=== PATIENT | female | born 1995 | race Caucasian/White ===

== ENCOUNTER 2017-10-17 18:54 | Emergency (ER) | payer OTHER ==
[2017-10-17 19:52] VITALS: BP 118/67
--- NOTE | 2017-10-17 20:03 | ED ---
Allergic Reaction/Systemic - HPI Summary HPI Summary: This patient is a 22 year old F presenting to [facility] accompanied by father with a chief complaint of possible allergic reaction that began at approximately 1830. The patient rates the pain 2/10 in severity. Symptoms aggravated by nothing. Symptoms alleviated by nothing. Patient reports slight dyspnea, mild epigastric pain, and dizziness. Pt reports that she ate noodles which may have had trace peanuts (which she is allergic to). - History of Current Complaint Chief Complaint: EDAllergicReaction Time Seen by Provider: 10/17/17 19:34 Hx Obtained From: Patient Onset/Duration: Sudden Onset, Started hours ago, Still Present Timing: Constant Severity Initially: Mild Severity Currently: Mild Pain Intensity: 2 Pain Scale Used: 0-10 Numeric Aggravating Factor(s): Nothing Alleviating Factor(s): Nothing Associated Signs And Symptoms: Positive: Other: - Patient reports slight dyspnea , mild epigastric pain, and dizziness - Allergies/Home Medications Allergies/Adverse Reactions: Allergies Allergy/AdvReac Type Severity Reaction Status Date / Time peanut Allergy Anaphylatic Verified 10/17/17 19:00 Shock PMH/Surg Hx/FS Hx/Imm Hx Previously Healthy: No Respiratory History: Reports: Hx Asthma Opthamlomology History: Denies: Hx Legally Blind EENT History: Denies: Hx Deafness Infectious Disease History: No Infectious Disease History: Denies: Traveled Outside the [place] in Last 30 Days - Family History Known Family History: Positive: Other - Heart murmur - father - Social History Occupation: Student Lives: Dormitory/Roommates Alcohol Use: Occasionally Hx Substance Use: Yes Substance Use Type: Reports: Marijuana Hx Tobacco Use: No Smoking Status (MU): Never Smoked Tobacco Review of Systems Positive: Other - Positive dyspnea Positive: Abdominal Pain Neurological: Other - Positive dizziness All Other Systems Reviewed And Are Negative: Yes Physical Exam - Summary Physical Exam Summary: Appearance: Well-appearing, Well-nourished, lying in bed comfortably Skin: Warm, dry, no obvious rash Eyes: sclera anicteric, no conjunctival pallor ENT: mucous membranes moist, pharynx appears normal Neck: Supple, nontender Respiratory: Clear to auscultation, no signs of respiratory distress Cardiovascular: Normal S1, S2. No murmurs. Normal distal pulses in tibial and radial bilaterally. Abdomen: Soft, nontender, normal active bowel sounds present Musculoskeletal: Normal, Strength/ROM Intact Neurological: A&Ox3, awake and alert, mentation is normal, speech is fluent and appropriate Psychiatric: affect is normal, does not appear anxious or depressed Triage Information Reviewed: Yes Vital Signs On Initial Exam: Initial Vitals Temp Pulse Resp BP Pulse Ox 98.3 F 80 18 131/76 98 10/17/17 18:56 10/17/17 18:56 10/17/17 18:56 10/17/17 18:56 10/17/17 18:56 Vital Signs Reviewed: Yes Diagnostics - Vital Signs Vital Signs Temp Pulse Resp BP Pulse Ox 10/17/17 19:42 61 97 10/17/17 19:41 73 118/67 98 10/17/17 18:56 98.3 F 80 18 131/76 98 - Laboratory Lab Statement: Any lab studies that have been ordered have been reviewed, and results considered in the medical decision making process. Allergic Reaction Course/Dx - Diagnoses Provider Diagnoses: Allergic reaction to food Discharge - Sign-Out/Discharge Documenting (check all that apply): Patient Departure - Discharge Plan Condition: Good Disposition: HOME Patient Education Materials: Anaphylaxis (ED), Peanut Allergy (ED) Referrals: No Primary Care Phys,NOPCP [Primary Care Provider] - Additional Instructions: Fortunately it appears that the exposure must have been very small, and has not caused any major or dangerous symptoms. Though quite unusual, symptoms can present in a delayed fashion up to even 3 days later, so keep some benadryl on hand if this happens, and if symptoms do become more severe or difficult to manage with benadryl just come on back to the ED and we will take care of it. - Billing Disposition and Condition Condition: GOOD Disposition: Home - Attestation Statements Document Initiated by Scribe: Yes Documenting Scribe: Dayana Bryan Provider For Whom Martinez is Documenting (Include Credential): Ricardo Gary MD Scribe Attestation: I, Dayana Bryan, scribed for Ricardo Gary MD on 10/18/17 at 0415. Scribe Documentation Reviewed: Yes Provider Attestation: The documentation as recorded by the Dayana brown accurately reflects the service I personally performed and the decisions made by me, Ricardo Gary MD
== END 2017-10-17 20:13 | disposition home or self-care (01) ==
LOC: ED 18:54
DX: T78.1XXA Other adverse food reactions, not elsewhere classified, initial encounter (principal); R06.00 Dyspnea, unspecified; R10.13 Epigastric pain; R42 Dizziness and giddiness; X58.XXXA Exposure to other specified factors, initial encounter; Z91.010 Allergy to peanuts
CPT/HCPCS: 99282

== ENCOUNTER 2017-11-30 21:20 | Emergency (ER) | payer OTHER ==
--- NOTE | 2017-11-30 21:50 | ED ---
Lower Extremity - HPI Summary HPI Summary: Patient complains of pain to the top of right foot 2 days. Patient states she first felt a sharp pain while walking and has had persistent pain with weightbearing since. Is worse with walking and weightbearing, relieved when not weightbearing and elevation. Denies trauma, any other pain, injury or symptoms. Denies taking medication for pain. - History of Current Complaint Chief Complaint: EDExtremityLower Stated Complaint: RT FT INJURY Time Seen by Provider: 11/30/17 21:34 Hx Obtained From: Patient Mechanism Of Injury: Unknown Onset of Pain: Immediate, Days Onset/Duration: Days Severity Initially: Mild Severity Currently: Mild Pain Intensity: 1 Pain Scale Used: 0-10 Numeric Timing: Intermittent Location: Is Discrete @ Character Of Pain: Sharp Associated Signs And Symptoms: Positive: Bruising Aggravating Factor(s): Ambulation, Weight Bearing Alleviating Factor(s): Rest, Elevation Able to Bear Weight: Yes - Allergies/Home Medications Allergies/Adverse Reactions: Allergies Allergy/AdvReac Type Severity Reaction Status Date / Time peanut Allergy Anaphylatic Verified 11/30/17 21:25 Shock Home Medications: Home Medications EPINEPHrine [Epinephrine] 1 syringe IM ONCE PRN 11/30/17 [History Confirmed 06/14] Estradiol 1 tab PO DAILY 11/30/17 [History Confirmed 11/30/17] PMH/Surg Hx/FS Hx/Imm Hx Endocrine/Hematology History: Denies: Hx Anticoagulant Therapy Cardiovascular History: Denies: Hx Cardiac Arrest Respiratory History: Reports: Hx Asthma History: Denies: Hx Dialysis Sensory History: Denies: Hx Legally Blind, Hx Deafness Opthamlomology History: Denies: Hx Legally Blind Neurological History: Denies: Hx CVA - Immunization History Immunizations Up to Date: Yes Infectious Disease History: No Infectious Disease History: Denies: Traveled Outside the [place] in Last 30 Days - Family History Known Family History: Positive: Other - Heart murmur - father - Social History Alcohol Use: Occasionally Hx Substance Use: Yes Substance Use Type: Reports: Marijuana Hx Tobacco Use: No Smoking Status (MU): Never Smoked Tobacco Review of Systems Constitutional: Negative Eyes: Negative ENT: Negative Cardiovascular: Negative Respiratory: Negative Gastrointestinal: Negative Genitourinary: Negative Musculoskeletal: Other Skin: Other Neurological: Negative Psychological: Normal All Other Systems Reviewed And Are Negative: Yes Physical Exam - Summary Physical Exam Summary: Area of ecchymosis over the site where patient is having pain. No deformity, swelling, erythema, extra warmth or deformity noted. No wounds. Very minimal tenderness to palpation at area of ecchymosis. PMS intact distally. Triage Information Reviewed: Yes Vital Signs On Initial Exam: Initial Vitals Temp Pulse Resp BP Pulse Ox 97.9 F 77 16 107/94 98 11/30/17 21:22 11/30/17 21:22 11/30/17 21:22 11/30/17 21:22 11/30/17 21:22 Vital Signs Reviewed: Yes Appearance: Positive: Well-Appearing Skin: Positive: Warm Head/Face: Positive: Normal Head/Face Inspection Eyes: Positive: Normal Neck: Positive: Supple Respiratory/Lung Sounds: Positive: Clear to Auscultation Cardiovascular: Positive: Normal Abdomen Description: Positive: Nontender Musculoskeletal: Positive: Normal Neurological: Positive: Normal Psychiatric: Positive: Normal AVPU Assessment: Alert - Jolene Coma Scale Best Eye Response: 4 - Spontaneous Best Motor Response: 6 - Obeys Commands Best Verbal Response: 5 - Oriented Coma Scale Total: 15 Diagnostics - Vital Signs Vital Signs Temp Pulse Resp BP Pulse Ox 11/30/17 21:22 97.9 F 77 16 107/94 98 - Laboratory Lab Statement: Any lab studies that have been ordered have been reviewed, and results considered in the medical decision making process. - Radiology foot Xray Interpretation: No Acute Changes Radiology Interpretation Completed By: ED Physician Lower Extremity Course/Dx - Course Course Of Treatment: Patient complains of pain to the top of right foot 2 days. Patient states she first felt a sharp pain while walking and has had persistent pain with weightbearing since. Is worse with walking and weightbearing, relieved when not weightbearing and elevation. Denies trauma, any other pain, injury or symptoms. Denies taking medication for pain. Physical exam:Area of ecchymosis over the site where patient is having pain. No deformity, swelling, erythema, extra warmth or deformity noted. No wounds. Very minimal tenderness to palpation at area of ecchymosis. PMS intact distally. X-ray - Diagnoses Provider Diagnoses: Foot pain Discharge - Sign-Out/Discharge Documenting (check all that apply): Patient Departure - Discharge Plan Condition: Stable Disposition: HOME Patient Education Materials: Metatarsalgia (DC) Referrals: No Primary Care Phys,NOPCP [Primary Care Provider] - Rhiannon Martinez DPM [Doctor of Podiatric Medicine] - Additional Instructions: Ice, rest and ibuprofen for pain. Pain does not improve within a week follow- up with podiatry Dr. Martinez. Return to the ED for any new or worsening symptoms - Billing Disposition and Condition Condition: STABLE Disposition: Home
[2017-11-30 22:09] VITALS: BP 117/61
--- NOTE | 2017-12-01 07:54 | RAD ---
HISTORY: pain s/p injury COMPARISONS: None VIEWS: 3 , Frontal, lateral, and oblique views of the right foot FINDINGS: BONE DENSITY: Normal. BONES: There is no displaced fracture. JOINTS: There is no arthropathy. ALIGNMENT: There is no dislocation. SOFT TISSUES: Unremarkable. OTHER FINDINGS: None. IMPRESSION: NO ACUTE OSSEOUS INJURY. IF SYMPTOMS PERSIST, RECOMMEND REPEAT IMAGING. R0
== END 2017-11-30 22:09 | disposition home or self-care (01) ==
LOC: ED 21:20
DX: M79.671 Pain in right foot (principal)
CPT/HCPCS: 99282